=== PATIENT | female | born 1950 | race Caucasian/White ===

== ENCOUNTER → 2016-10-20 | Outpatient (CLI) | payer MEDICARE, BC ==
[~2016-10-20] MED LIST: ALTACE DPS10 MG PO; ANTIVERT-DPS25 MG PO; COUMADIN5 MG PO; DAILY MULTIPLE1 EAC1 PO; GLIPIZIDE XL5 MG PO; HYDROCODON-ACE1 EAC4 PO; INVOKANA300 MG PO; KEFLEX-DPS500 MG PO; LOPRESSOR DPS50 MG PO; NORVASC DPS10 MG PO; TIMOPTIC 0.25% OU; TRAVATAN2.5 ML OU; ULTRAM DPS50 MG PO; ZOCOR DPS20 MG PO; ZYLOPRIM-DPS300 MG PO; [UNRECOGNIZED DRUG - OTHER] OU
== END | disposition home or self-care (01) ==
LOC: RAD.S 10:40
DX: M79.662 Pain in left lower leg (principal); M79.89 Other specified soft tissue disorders; E87.6 Hypokalemia; R59.0 Localized enlarged lymph nodes; Z86.718 Personal history of other venous thrombosis and embolism; Z85.3 Personal history of malignant neoplasm of breast